=== PATIENT | female | born 1975 | race Caucasian/White ===

== ENCOUNTER 2016-04-13 15:37 | Emergency (ER) | payer BC ==
[2016-04-13 18:08] LABS: APPEARANCE CLEAR (CLEAR); BILIRUBIN NEGATIVE (NEGATIVE); COLOR YELLOW (YELLOW); GLUCOSE NEGATIVE (NEGATIVE); KETONE NEGATIVE (NEGATIVE); LEUKOCYTE ESTERASE NEGATIVE (NEGATIVE); NITRITE NEGATIVE (NEGATIVE); PROTEIN NEGATIVE (NEGATIVE); UROBILINOGEN NORMAL (NORMAL)
== END 2016-04-13 18:29 | disposition home or self-care (01) ==
LOC: D.ER 15:37
PROVIDERS: Nurse Practitioner Acute Care
DX: T14.8 Other injury of unspecified body region (principal); V43.62XA Car passenger injured in collision with other type car in traffic accident, initial encounter; Y93.89 Activity, other specified; Y92.410 Unspecified street and highway as the place of occurrence of the external cause; F17.200 Nicotine dependence, unspecified, uncomplicated

== ENCOUNTER 2018-07-08 15:23 | Emergency (ER) | payer BC ==
[~2018-07-08] VITALS: Ht 175.3 cm; Wt 65.9 kg
[2018-07-08 15:37] VITALS: Ht 175.3 cm; Wt 65.9 kg
[2018-07-08] MEDS ORDERED: ALEVE220 MG PO (15:40)
[2018-07-08] MEDS ORDERED: HYDROCODON-ACE1 EAC7 PO (17:54)
[2018-07-08 17:56] VITALS: BP 118/74
== END 2018-07-08 17:56 | disposition home or self-care (01) ==
LOC: D.ER 15:23
DX: S42.292A Other displaced fracture of upper end of left humerus, initial encounter for closed fracture (principal); W18.30XA Fall on same level, unspecified, initial encounter

== ENCOUNTER 2019-09-07 19:57 | Emergency (ER) | payer BC ==
[~2019-09-07] VITALS: Ht 175.3 cm; Wt 76.2 kg
[~2019-09-07 19:57] MED LIST: ALEVE220 MG PO; HYDROCODON-ACE1 EAC7 PO
[2019-09-07 20:26] VITALS: Ht 175.3 cm; Wt 76.2 kg
[2019-09-07 22:06] VITALS: BP 135/81
== END 2019-09-07 22:06 | disposition home or self-care (01) ==
LOC: D.ER 19:57
DX: G90.2 Horner's syndrome (principal); R53.1 Weakness